=== PATIENT | female | born 1985 | race African-American/Black ===

== ENCOUNTER 2021-09-06 09:50 | Emergency (ER) | payer OTHER ==
[2021-09-06 09:58] VITALS: BMI 31.3
[2021-09-06] MEDS ORDERED: SODIUM CHLORIDE 0.9% 500 ML INFUS.BAG IV ONE (10:57)
[2021-09-06] MEDS ORDERED: ACETAMINOPHEN 1000 MG/100 ML VIAL IVPB ONE (10:57)
[2021-09-06] MEDS ORDERED: ACETAMINOPHEN INJECTION 100 ML IVPB ONE (11:51)
[2021-09-06 12:16] LABS: BASO % 0.9 % (0-2.0); EPI CELLS 32 /uL (0-25.1); HEMATOCRIT 35.1 % (32.4-45.2); HEMOGLOBIN 11.6 GM/dL (10.7-15.3); HYALINE CASTS 1 /uL (0-3.1); LYMPH % 15.4 % (8-40); MCH 25.8 pg (25.7-33.7); MCHC 33.2 g/dl (32.0-36.0); MEAN CELL VOLUME 77.7 fl (80-96); MEAN PLT VOLUME 9.9 fl (7.5-11.1); MONO % 6.2 % (3.8-10.2); NEUT % 75.5 % (42.8-82.8); PH,URINE 5.5 (5.0-8.0); PLATELET COUNT 298 10^3/uL (134-434); RBC 4.51 M/mm3 (3.60-5.2); RDW 14.6 % (11.6-15.6); URINE APPEARANCE CLEAR; URINE BACTERIA 153 /uL (0-1359); URINE BILIRUBIN NEGATIVE (NEGATIVE); URINE COLOR YELLOW; URINE GLUCOSE (UA) NEGATIVE (NEGATIVE); URINE KETONE TRACE (NEGATIVE); URINE LEUK ESTERASE NEGATIVE (NEGATIVE); URINE NITRITE NEGATIVE (NEGATIVE); URINE PROTEIN NEGATIVE (NEGATIVE); URINE RBC 7 /uL (0-23.9); URINE WBC 10 /uL (0-25.8); WHITE BLOOD COUNT 11.5 K/mm3 (4.0-10.0)
[2021-09-06 12:35] LABS: ALBUMIN 3.8 g/dl (3.4-5.0); BLOOD UREA NITROGEN 16.4 mg/dL (7-18); CALCIUM 9.1 mg/dL (8.5-10.1)
[2021-09-06 12:38] LABS: CREATININE 0.7 mg/dL (0.55-1.3)
[2021-09-06 12:40] LABS: BILIRUBIN,TOTAL 0.3 mg/dL (0.2-1); TOT PROT 7.8 g/dl (6.4-8.2)
[2021-09-06 17:19] VITALS: BP 108/62; PULSE 70; TEMP 98
== END 2021-09-06 15:15 | disposition home or self-care (01) ==
LOC: JER 09:50
PROC: 3E033NZ Introduction of Analgesics, Hypnotics, Sedatives into Peripheral Vein, Percutaneous Approach (ICD-10-PCS; principal; 2021-09-06)
DX: O20.8 Other hemorrhage in early pregnancy (principal)
CPT/HCPCS: 36415; 76817-TC; 80053; 81003; 84702; 85025; 86850; 86900; 86901; 87086; 96374; 99284-25; J0131